=== PATIENT | female | born 1990 | race Caucasian/White ===

== ENCOUNTER 2018-08-22 12:05 | Emergency (ER) | payer OTHER ==
[2018-08-22 12:38] VITALS: BP 131/83
--- NOTE | 2018-08-22 12:59 | UC ---
Hand/Wrist HPI - HPI Summary HPI Summary: 27 year old right handed female was wrestling yesterday and now complains of significant pain over the right fifth finger. She cannot make a fist. Nurses note: "c/o right pinky finger and hand pain since last night. Wrestling with a friend, states it was an accident. Swollen, redness and pain. - History Of Current Complaint Chief Complaint: UCUpperExtremity Stated Complaint: RT FINGER INJURY Time Seen by Provider: 08/22/18 12:59 Hx Obtained From: Patient Hx Last Menstrual Period: "years" ?: No Pain Intensity: 8 - Allergies/Home Medications Allergies/Adverse Reactions: Allergies Allergy/AdvReac Type Severity Reaction Status Date / Time pineapple Allergy Rash Verified 08/22/18 12:39 Home Medications: Home Medications Amoxicillin 1 tab PO BID 08/22/18 [History Confirmed 08/22/18] Cyanocobalamin (Vitamin B-12) [Vitamin B-12] 1 tab PO 08/22/18 [History] Zinc 1 tab PO DAILY 08/22/18 [History Confirmed 08/22/18] PMH/Surg Hx/FS Hx/Imm Hx - Additional Past Medical History Additional PMH: Patient denies signifcant past medical hx including admissions for serious illness or surgery. Family Hx: Patient denies hypertension, cancer, diabetes, or cardiovascular disease. Social history: Patient lives with her 2 children. She works for [employer]. Previously Healthy: Yes - Surgical History Surgical History: None - Social History Alcohol Use: None Substance Use Type: None Smoking Status (MU): Never Smoked Tobacco Have You Smoked in the Last Year: No - Immunization History Most Recent Influenza Vaccination: unsure Most Recent Tetanus Shot: unsure Most Recent Pneumonia Vaccination: unsure Review of Systems All Other Systems Reviewed And Are Negative: Yes Constitutional: Positive: Negative Respiratory: Positive: Negative Cardiovascular: Positive: Negative Gastrointestinal: Positive: Negative Genitourinary: Positive: Negative Motor: Positive: Decreased ROM - right hand; cannot flex Musculoskeletal: Positive: Arthralgia, Myalgia, Other: - pain over 5th finger right hand Physical Exam - Summary Physical Exam Summary: Appearance: The patient is well-appearing, is in no pain or distress, and is well-nourished. Eyes: Conjunctiva are clear. Pupils are equal and reactive to light and accommodation. Extra ocular muscle movement is intact. ENT: The hearing is grossly normal, the pharynx is normal, and the TMs are normal. There is no muffled or hoarse voice. No stridor. Neck: The neck is supple and there is no lymphadenopathy. Respiratory: The chest is nontender to palpation and without crepitus. The lungs are clear, there are normal breath sounds, and there is no respiratory distress. No wheezes, rales or rhonchi. Cardiovascular: Heart sounds reveal a regular rate and rhythm. There are no clicks, rubs or murmurs. There are no carotid bruits or thrills. Circulation is grossly intact. Abdomen: The abdomen is soft and nontender. There is no organomegaly. Bowel sounds are present and within normal limits. No point tenderness at McBurneys point. Musculoskeletal: Strength is intact. The patient moves all extremities. Pain and swelling over 5th finger of right hand especially proximal phalanx. can't make a fist. also lack full extension because of pain. sensation and circulation intact. Neurological: The patient is alert. Motor and sensory are examination grossly intact. Speech is normal. Psychological: The patient displays age appropriate behavior Skin: Negative for rashes. Triage Information Reviewed: Yes Vital Signs: Initial Vital Signs Temp 98.8 F 08/22/18 12:33 Pulse 101 08/22/18 12:33 Resp 18 08/22/18 12:33 BP 131/83 08/22/18 12:33 Pulse Ox 99 08/22/18 12:33 Vital Signs Reviewed: Yes Hand/Wrist Course/Dx - Course Course Of Treatment: Healthy 27-year-old female who is right-handed, was wrestling yesterday and had her fifth finger of her right hand, pulled. X-ray shows a nondisplaced fracture of the proximal phalanx of the fifth finger. Patient will be splinted and follow up with orthopedics on Friday. x ray: There is mild soft tissue swelling about the fifth proximal interphalangeal joint. The bone mineralization is within normal limits. A nondisplaced metaphyseal fracture along the distal radial aspect of the fifth proximal phalanx is annotated. There is no intra-articular extension. Anatomic alignment is maintained. The joint spaces are grossly preserved. IMPRESSION: Nondisplaced distal metaphyseal fracture of the fifth proximal phalanx without intra-articular extension. - Differential Dx/Diagnosis Differential Diagnosis/HQI/PQRI: Fracture, Sprain, Strain Provider Diagnosis: Fracture Discharge - Sign-Out/Discharge Documenting (check all that apply): Patient Departure All imaging exams completed and their final reports reviewed: Yes - Discharge Plan Condition: Stable Disposition: HOME Patient Education Materials: Finger Fracture (ED) Forms: *Work Release Referrals: No Primary Care Phys,NOPCP [Primary Care Provider] - Slava Ng MD [Medical Doctor] - Additional Instructions: WE DISCUSSED: PLEASE SEEK CARE AT THE EMERGENCY DEPARTMENT IF SYMPTOMS WORSEN OR IF NEW SYMPTOMS DEVELOP. FOLLOW UP WITH YOUR PRIMARY CARE PHYSICIAN IF CONDITION CONTINUES BEYOND 3 DAYS WITHOUT IMPROVEMENT. We are open from 7 a.m. to 10 p.m. Call us with any questions or concerns. YOUR DIAGNOSIS IS: fracture, broken bone of your small finger of your right hand; finger is vera tapped. YOUR PRESCRIPTION RECOMMENDATION IS: splint, elevate, ice; see orthopedics tomorrow. OTHER INSTRUCTIONS: call orthopedics for follow up; Dr. Ng: [phone]. For pain: Ibuprofen (Motrin and other brand names) 400-600mg PLUS acetaminophen (Tylenol and other brand names) 500mg - 1000mg every 8 hours. Maximum is 3 doses a day. If this dosage is required for more than 5 days, you should re-check with your doctor. The combination of these two over-the- counter medications can be more effective than each one taken alone. Please check with the pharmacist if you have questions about your allergies to these medications. - Billing Disposition and Condition Condition: STABLE Disposition: Home
== END 2018-08-22 14:50 | disposition home or self-care (01) ==
LOC: UCEAST 12:05
DX: S92.514A Nondisplaced fracture of proximal phalanx of right lesser toe(s), initial encounter for closed fracture (principal); Z91.018 Allergy to other foods; X58.XXXA Exposure to other specified factors, initial encounter; Y93.72 Activity, wrestling; Y92.9 Unspecified place or not applicable
CPT/HCPCS: 84702; 99213; G0463